=== PATIENT | female | born 1965 | race Caucasian/White ===

== ENCOUNTER 2016-07-05 18:55 | Emergency (ER) | payer OTHER ==
[~2016-07-05] VITALS: Ht 160 cm; Wt 85.0 kg
[~2016-07-05 18:55] MED LIST: CELE40TA PO; CITA20 PO; PRIL40CA PO; ULTR50TA PO
[2016-07-05 19:03] VITALS: BP 143/96; PULSE 103; RESP 16; TEMP 98.1; O2SAT 99
[2016-07-05] MEDS ORDERED: HYDR2.5%T RECTAL (20:15)
[2016-07-05] MEDS ORDERED: PERC7.5T13 PO (20:15)
[2016-07-05] MEDS ORDERED: oxyCODONE/ACETAMINOPHEN 5 MG/325 MG TAB PO ONE (20:15)
--- NOTE | 2016-07-05 20:15 | PD ---
HPI Chief Complaint: GI Complaint Time Seen by Provider: 19:54 Travel History International Travel<30 days: No Contact w/Intl Traveler<30days: No Traveled to known affect area: No History of Present Illness HPI This 50-year-old female noted a lump around her anus earlier today. It is quite painful. She has a history of hemorrhoids. There has not been any blood in the stool. She has not been constipated. PFSH Past Medical History Arthritis: Yes Blood Disorders: No Anxiety: Yes Depression: Yes Cancer: No Cardiovascular Problems: No Diabetes: No Diminished Hearing: No Endocrine: No Gastrointestinal Disorders: Yes ("Gallbladder attack") GERD: Yes Glaucoma: No Headaches: Yes Hepatitis: No Hiatal Hernia: Yes Hypertension: Yes Immune Disorder: No Implanted Vascular Access Dvce: No Musculoskeletal: Yes (Intermittent low back pain, sciatica) Psychiatric: Yes Reproductive: No Respiratory: No Immunizations Current: Yes Thyroid Disease: No Menopausal: Yes : 3 Para: 3 Ovarian Cysts: Yes Past Surgical History Abdominal Surgery: Yes (Left inguinal hernia) Cardiac Surgery: No Section: Yes (X's 2) Ear Surgery: No Eye Surgery: No Gynecologic Surgery: Yes (C SECT X 2,HYSTERECTOMY) Hysterectomy: Yes Oral Surgery: No Pacemaker: No Thoracic Surgery: No Other Surgery: Yes (LEFT INGUINAL HERNIA) Social History Alcohol Use: No Tobacco Use: No (As a teenager) Substance Use: No Allergies-Medications (Allergen,Severity, Reaction): Coded Allergies: Neurontin (Verified Allergy, Severe, Anaphylaxis, 07/05/16) *MDRO Multi-Drug Resistant Organism (Verified Adverse Reaction, Unknown, ) MRSA knee 2009 Reported Meds & Prescriptions Reported Meds & Active Scripts Active Celexa 20 Mg Tab (Citalopram Hydrobromide) 20 Mg Tab 20 Mg PO DAILY Reported Ultram (Tramadol HCl) 50 Mg Tab 50 Mg PO Q4H PRN Prilosec 40 mg cap (Omeprazole) 40 Mg Cap 20 Mg PO DAILY Celexa (Citalopram Hydrobromide) 40 Mg Tab 20 Mg PO DAILY Review of Systems General / Constitutional: No: Fever, Chills HENT: No: Lightheadedness Respiratory: No: Shortness of Breath Gastrointestinal: No: Diarrhea, Constipation Genitourinary: No: Urgency, Frequency Neurologic: No: Weakness Physical Exam Narrative GENERAL: [-] SKIN: Warm and dry. HEAD: Atraumatic. Normocephalic. EYES: Pupils equal and round. No scleral icterus. No injection or drainage. ENT: No nasal bleeding or discharge. Mucous membranes pink and moist. GASTROINTESTINAL: Abdomen soft, non-tender, nondistended. Hepatic and splenic margins not palpable. He was a thrombosed external hemorrhoid palpable and visible MUSCULOSKELETAL: No obvious deformities. No clubbing. No cyanosis. No edema. NEUROLOGICAL: Awake and alert. No obvious cranial nerve deficits. Motor grossly within normal limits. Normal speech. PSYCHIATRIC: Appropriate mood and affect; insight and judgment normal. Data Data Last Documented VS Vital Signs Date Time Temp Pulse Resp B/P Pulse Ox O2 Delivery O2 Flow Rate FiO2 07/05/16 19:03 98.1 103 16 143/96 99 Orders Oxycodone-Acetamin 5-325 Mg (Percocet (07/05/16 20:15) MDM Medical Decision Making Medical Screen Exam Complete: Yes Emergency Medical Condition: Yes Medical Record Reviewed: Yes Differential Diagnosis Differential includes thrombosed hemorrhoid Narrative Course Patient will be given pain medication and given Anusol. She is stable for discharge, follow up with colorectal if symptoms persist Diagnosis Primary Impression: Thrombosed external hemorrhoid Scripts Oxycodone-Acetaminophen (Percocet)7.5-325 mg Tab1 Tab PO Q4H PRN (PAIN) #30 TAB Ref 0 Prov:Rafi Liriano MD 07/05/16 Hydrocortisone Rectal (Anusol-Hc Rectal)2.5% Cream1 Applic RECTAL Q4-6H PRN ( ITCHING/INFLAMMATION) #30 GM Ref 0 Prov:Rafi Liriano MD 07/05/16 Disposition: 01 DISCHARGE HOME Condition: Stable Rafi Liriano MD Jul 05, 2016 20:15
[2016-07-05] MEDS ORDERED: CITA20TA4 PO (20:35)
[2016-07-05] MEDS ORDERED: OMEP40CA2 PO (20:35)
[2016-07-05] MEDS ORDERED: TRAM50TA PO (20:35)
[2016-07-05 21:20] VITALS: BP 139/93
== END 2016-07-05 21:25 | disposition home or self-care (01) ==
LOC: PHED 18:55
DX: K64.5 Perianal venous thrombosis (principal); I10 Essential (primary) hypertension; Z87.39 Personal history of other diseases of the musculoskeletal system and connective tissue; Z86.59 Personal history of other mental and behavioral disorders; Z87.19 Personal history of other diseases of the digestive system
CPT/HCPCS: 99283